=== PATIENT | female | born 1960 | race African-American/Black ===

== ENCOUNTER 2021-04-27 17:11 | Emergency (ER) | payer SELFPAY ==
[~2021-04-27] VITALS: Ht 157.5 cm; Wt 104.0 kg
[2021-04-27 18:04] LABS: CLARITY URINE CLEAR (CLEAR); COLOR URINE YELLOW (YELLOW); KETONES URINE NEGATIVE (NEGATIVE); LEUKOCYTE ESTERASE URINE NEGATIVE (NEGATIVE); NITRITE URINE NEGATIVE (NEGATIVE); OCCULT BLOOD URINE TRACE (NEGATIVE); PH URINE 6.5 (4.5-8.0); PROTEIN URINE NEGATIVE (NEGATIVE); SPECIFIC GRAVITY URINE 1.018 (1.005-1.030); UROBILINOGEN URINE 0.2 E.U./dL (0.2-1.0)
[2021-04-27 19:30] VITALS: BP 180/95
== END 2021-04-27 19:35 | disposition home or self-care (01) ==
LOC: ER 17:11
DX: M25.552 Pain in left hip (principal)
CPT/HCPCS: 73502; 81003; 99284